=== PATIENT | female | born 1940 | race Caucasian/White ===

== ENCOUNTER 2022-02-04 11:18 | Emergency (ER) | payer MEDICARE, OTHER ==
[~2022-02-04] VITALS: Ht 162.6 cm; Wt 81.6 kg
[~2022-02-04 11:18] MED LIST: BENICAR40 MG; TENORMIN50 MG
[2022-02-04 11:55] LABS: BASOPHILS # (AUTO) 0.1 (0.0-0.1); BASOPHILS % 0.7 % (0.0-1.0); EOSINOPHILS # (AUTO) 0.4 (0.0-0.4); EOSINOPHILS % 4.1 % (0.0-6.0); HEMATOCRIT 36.4 % (34.2-44.1); HEMOGLOBIN 10.9 g/dL (12.0-16.0); LYMPHOCYTES # (AUTO) 1.9 (1.0-3.2); LYMPHOCYTES % 21.3 % (18.0-39.1); MEAN CORPUSCULAR HEMOGLOBIN 19.6 pg (28-32); MEAN CORPUSCULAR HGB CONC 29.9 g/dL (31-35); MEAN CORPUSCULAR VOLUME 65.4 fL (81-99); MONOCYTES # (AUTO) 0.8 (0.2-0.8); MONOCYTES % 9.3 % (4.4-11.3); NEUTROPHILS # (AUTO) 5.7 (2.1-6.9); NEUTROPHILS % 64.3 % (38.7-80.0); PLATELET COUNT 285 x10e3/uL (140-360); RED BLOOD COUNT 5.57 x10e6/uL (3.6-5.1); RED CELL DISTRIBUTION WIDTH 16.1 % (11.7-14.4)
[2022-02-04] MEDS ORDERED: CLONIDINE HCL 0.1 MG TAB PO ONE (12:00)
[2022-02-04 12:06] LABS: INR 1.01; PROTHROMBIN TIME 14.2 seconds (11.9-14.5)
[2022-02-04 12:07] LABS: PARTIAL THROMBOPLASTIN TIME 25.3 seconds (23.8-35.5)
[2022-02-04 12:20] LABS: ALANINE AMINOTRANSFERASE 19 IU/L (0-55); ALBUMIN/GLOBULIN RATIO 1.2 (0.8-2.0); ALKALINE PHOSPHATASE 39 IU/L (40-150); ANION GAP 18.6 mmol/L (8-16); BLOOD UREA NITROGEN 19 mg/dL (7-26); BUN/CREATININE RATIO 20 (6-25); CALCIUM 9.7 mg/dL (8.4-10.2); CARBON DIOXIDE 22 mmol/L (22-29); CHLORIDE 104 mmol/L (98-107); CREATINE KINASE 50 IU/L (29-168); CREATININE, SERUM 0.95 mg/dL (0.57-1.11); GLUCOSE 174 mg/dL (74-118); MAGNESIUM 1.7 MG/DL (1.3-2.1); POTASSIUM 4.6 mmol/L (3.5-5.1); SODIUM 140 mmol/L (136-145)
== END 2022-02-04 14:10 | disposition home or self-care (01) ==
LOC: ER 11:27
DX: I10 Essential (primary) hypertension (principal); E11.65 Type 2 diabetes mellitus with hyperglycemia
CPT/HCPCS: 36415; 70450; 80053; 82550; 82553; 83735; 84484; 85025; 85610; 85730; 93005; 99284

== ENCOUNTER 2025-02-28 12:02 | Emergency (ER) | payer MEDICARE ==
[~2025-02-28] VITALS: Ht 162.6 cm; Wt 63.5 kg
[2025-02-28 12:28] LABS: BASOPHILS % 0.4 % (0.0-1.0); EOSINOPHILS % 3.0 % (0.0-6.0); LYMPHOCYTES % 26.1 % (18.0-39.1); MONOCYTES % 8.4 % (4.4-11.3); NEUTROPHILS % 60.9 % (38.7-80.0); RED CELL DISTRIBUTION WIDTH 15.8 % (11.7-14.4)
[2025-02-28 12:29] VITALS: PULSE 78; RESP 18; TEMP 97.4
[2025-02-28 12:39] LABS: EST GLOMERULAR FILTRATION RATE 71.0 ML/MIN (>=60)
[2025-02-28] MEDS: TETANUS/DIPHTHERIA TOX ADULT 0.5 ML SYR IM ONE (13:31)
[2025-02-28] MEDS ORDERED: HYDROCODON-ACE1 EA12 PO (13:53)
[2025-02-28] MEDS ORDERED: AMOX TR-K CLV1 EAC2 PO (13:53)
[2025-02-28] MEDS: HYDROCODONE/APAP 5MG-325MG TAB PO ONE (14:19)
[2025-02-28] MEDS: NAPROXEN 250 MG TAB PO STA (14:20)
[2025-02-28 14:35] VITALS: BP 199/89; PULSE 79; RESP 18; TEMP 98.1; O2SAT 97
== END 2025-02-28 14:36 | disposition home or self-care (01) ==
LOC: ER 12:07
DX: S02.612A Fracture of condylar process of left mandible, initial encounter for closed fracture (principal); W18.39XA Other fall on same level, initial encounter; Y93.01 Activity, walking, marching and hiking; Y92.89 Other specified places as the place of occurrence of the external cause; I10 Essential (primary) hypertension; E11.65 Type 2 diabetes mellitus with hyperglycemia
CPT/HCPCS: 36415; 70450; 70486; 72125; 80048; 85025; 90471; 90714; 99284